=== PATIENT | female | born 1980 | race Hispanic/Latino ===

== ENCOUNTER 2019-03-01 00:28 | Emergency (ER) | payer OTHER ==
[2019-03-01 01:37] LABS: BASOPHILS % (AUTO) 0.2 % (0.0-5.0); EOSINOPHILS % (AUTO) 0.2 % (0.0-8.0); HEMATOCRIT 46.3 % (36-48); LYMPHOCYTES % (AUTO) 16.9 % (21.0-51.0); MEAN CORPUSCULAR HEMOGLOBIN 26.4 pg (27.0-33.0); MEAN CORPUSCULAR HGB CONC 32.4 g/dL (32.0-36.0); MEAN CORPUSCULAR VOLUME 81.4 fL (79-99); MONOCYTES % (AUTO) 4.1 % (3.0-13.0); NEUTROPHILS % (AUTO) 78.3 % (40.0-77.0); PLATELET COUNT (AUTO) 290 K/uL (130-400); RED BLOOD CELL COUNT(AUTO) 5.69 MIL/uL (4.00-5.50); RED CELL DISTRIBUTION WIDTH 13.3 % (11.0-15.5)
[2019-03-01] MEDS ORDERED: ONDANSETRON HCL 4 MG/2 ML VIAL ONE (01:38)
[2019-03-01] MEDS ORDERED: FAMOTIDINE/PF 20 MG/2 ML VIAL IV ONE (01:38)
[2019-03-01] MEDS ORDERED: METOCLOPRAMIDE 10 MG/2 ML VIAL ONE (01:38)
[2019-03-01] MEDS ORDERED: SODIUM CHLORIDE 0.9% 1000ML 1,000 ML IV ONE ×3 (01:39→04:10)
[2019-03-01 01:59] LABS: ALBUMIN 2.9 g/dL (3.5-5.0); BILIRUBIN,TOTAL 0.6 mg/dL (0.2-1.0); CREATININE 0.8 mg/dL (0.5-1.5); POTASSIUM 5.2 mmol/L (3.5-5.1); TOTAL PROTEIN, SERUM 7.5 g/dL (6.0-8.3)
[2019-03-01 03:15] LABS: BILIRUBIN,URINE Negative (NEGATIVE); COLOR,URINE Yellow (YELLOW); GLUCOSE, URINE (UA) >=1000 mg/dL (NEGATIVE); KETONES,URINE 40 mg/dL (NEGATIVE); LEUKOCYTE ESTERASE ,URINE Trace (NEGATIVE); NITRATE,URINE Positive (NEGATIVE); OCCULT BLOOD,URINE Trace (NEGATIVE); PH,URINE 5.5 (5.0-8.0); PROTEIN,URINE Negative (NEGATIVE); UROBILINOGEN,URINE 0.2 mg/dL (0.2-1.0)
[2019-03-01 03:17] LABS: APPEARANCE,URINE CLEAR (CLEAR); HCG,QUAL RESULT NEGATIVE (NEGATIVE)
[2019-03-01 03:27] LABS: ABG OXYGEN SATURATION 96.4 % (95.0-99.0); BASE EXCESS,VENOUS BLOOD GAS -7.1 (-2.0-3.0); HCO3,VENOUS BLOOD GAS 15.4 (21.0-28.0); PCO2,VENOUS BLOOD GAS 24 (32-45); PH,VENOUS BLOOD GAS 7.417 (7.350-7.450)
[2019-03-01 03:31] LABS: BACTERIA,URINE Few /HPF (None Seen); RBC,URINE 0-1 /HPF (0-1)
[2019-03-01 03:32] LABS: SQUAMOUS EPITHELIAL CELL,UR 0-2 /HPF (0-2); YEAST,URINE BUDDING Rare /HPF (None Seen)
[2019-03-01] MEDS ORDERED: SULFAMETHOX-TMP DS 800/160 TAB ONE ×2 (06:08→06:10)
== END 2019-03-01 06:17 | disposition home or self-care (01) ==
LOC: EDH 00:28
DX: E86.9 Volume depletion, unspecified (principal); R73.9 Hyperglycemia, unspecified; L02.211 Cutaneous abscess of abdominal wall; Z90.49 Acquired absence of other specified parts of digestive tract
CPT/HCPCS: 36415; 36600; 80053; 81001; 81025; 82010; 82803; 82948; 83605; 84484; 85025; 93005; 96361; 96374; 96375; 99285; J2405; J2765; J3490; J7030 ×3